=== PATIENT | female | born 1990 | race Two or more races ===

== ENCOUNTER 2019-03-12 20:05 | Observation (INO) | payer MEDICAID ==
[~2019-03-12] VITALS: Ht 167.6 cm; Wt 79.4 kg
[2019-03-13] MEDS ORDERED: PREN-96 PO (09:37)
== END 2019-03-12 21:50 | disposition home or self-care (01) | DRG 566 ==
LOC: LDRP 20:05
PROVIDERS: ADMIT Obstetrics & Gynecology; ATTEND Obstetrics & Gynecology
DX: O36.8130 Decreased fetal movements, third trimester, not applicable or unspecified (principal); O26.893 Other specified pregnancy related conditions, third trimester; N89.8 Other specified noninflammatory disorders of vagina; Z3A.40 40 weeks gestation of pregnancy
CPT/HCPCS: 59025; 76818; 81002; G0378

== ENCOUNTER 2019-03-13 09:13 | Observation (INO) | payer MEDICAID ==
[2019-03-13] MEDS ORDERED: PREN-96 PO (09:37)
== END 2019-03-13 09:50 | disposition home or self-care (01) | DRG 566 ==
LOC: LDRP 09:13 → INTOOBSV 09:13
PROVIDERS: ADMIT Specialist; ATTEND Specialist
DX: O36.8130 Decreased fetal movements, third trimester, not applicable or unspecified (principal); O48.0 Post-term pregnancy; Z3A.40 40 weeks gestation of pregnancy
CPT/HCPCS: 59025; 81002; G0378